=== PATIENT | female | born 1945 | race Caucasian/White ===

== ENCOUNTER 2020-09-12 07:26 | Day surgery (SDC) | payer MEDICARE ==
[~2020-09-12 07:26] MED LIST: AMITIZA24 MC1 PO; AMITRIPTYLIN50 MG PO; BACTRIM DS1 TAB PO; BENZONATATE200 MG PO; BIOTIN5000 MC2 PO; CALCIUM 1200 OR; CALCIUM PO; CIPROFLOXACN250 MG PO; CIPROFLOXACN500 MG PO; CITALOPRAM HYDR40 MG OR; CITALOPRAM20 MG OR; CITALOPRAM20 MG PO; CITALOPRAM40 MG PO; CRANBERRY1 TA1 PO; CRESTOR20 MG PO; CRESTOR40 MG OR; CYTOTEC200 MCG PO; DICLOFEN POT50 MG OR; DICLOFENAC75 MG PO; FLONASE NASAL50 MCG; LEVOTHYROXIN25 MC1 PO; LEVOTHYROXIN50 MCG PO; LEVOTHYROXIN75 MCG PO; LISINOPRIL5 MG PO; MACROBID100 MG OR; MACRODANTIN100 MG PO; MAGNESIUM250 M1 PO; MIRALAX3350 N1 PO; MUCINEX600 MG PO; MULTIVITAM10 OR; MULTIVITAMIN AD1 TA1 PO; NORCO1 TA1 PO; OXYCODONE15 MG OR; OXYCODONE40 MG OR; OXYCONTIN PO; PERCOCET 10/31 COMBO PO; PERCOCET1 TA4; PERCOCET1 TA4 PO; PREMARIN0.625 MG PO; PROZAC20 MG PO; THC OIL PO; TRAMADOL HCL50 MG PO; TYLENOL 8 HOUR650 MG PO; VENLAFAXINE75 M2 PO; VESICARE10 MG PO; VITAMIN B-121000 MCG OR; VITAMIN D-3400 UNIT OR; WAL-SLEEP Z25 MG PO; XANAX0.25 MG PO; XANAX1 MG PO; ZINC50 M1 PO; ZOSTAVAX IM; [UNRECOGNIZED DRUG - OTHER] PO; [UNRECOGNIZED DRUG - OTHER] PO
[2020-09-12 10:18] VITALS: BP 112/61
== END 2020-09-12 10:08 | disposition home or self-care (01) ==
LOC: ENDO 07:26 → ORM 08:40 → ENDO 10:08 → ORM 10:15
PROVIDERS: ATTEND Surgery
PROC: 0DJD8ZZ Inspection of Lower Intestinal Tract, Via Natural or Artificial Opening Endoscopic (ICD-10-PCS; principal; 2020-09-12)
DX: R19.5 Other fecal abnormalities (principal); Z20.828 Contact with and (suspected) exposure to other viral communicable diseases